=== PATIENT | male | born 1965 ===

== ENCOUNTER 2023-08-27 16:48 | Emergency (ER) | payer OTHER ==
[2023-08-27] MEDS ORDERED: Naloxone 0.4 MG/ML SDV IVPUSH PRN (17:12)
[2023-08-27 17:21] LABS: HEMATOCRIT 35.5 % (38.3-50.1); HEMOGLOBIN 11.8 g/dL (12.9-17.7); MEAN CORPUSCULAR HEMOGLOBIN 28.8 pg (27.0-33.3); MEAN CORPUSCULAR HGB CONC 33.2 g/dL (28.7-35.3); MEAN PLATELET VOLUME 7.8 fL (6.7-11.0); PLATELET COUNT,PLT 248 x10(3)uL (117-477); RED BLOOD CELL COUNT 4.08 x10(6)uL (3.90-5.90); RED CELL DISTRIBUTION WIDTH 13.6 % (12.4-15.0); WHITE BLOOD CELL COUNT,WBC 19.2 x10-3/uL (3.2-10.1)
[2023-08-27] MEDS: Ondansetron 4 MG/2 ML SDV IVPUSH ONE (17:21)
[2023-08-27] MEDS: HYDROmorphone 2 MG/ML SDV IVPUSH ONE (17:23)
[2023-08-27] MEDS: Sodium Chloride 0.9% 1,000 ML IV SCH ×2 (17:25→18:37)
[2023-08-27] MEDS: Sodium Chloride 0.9% 10 ML Syringe FLUSH PRN (17:25)
[2023-08-27 17:30] LABS: A/G RATIO 0.5; ALANINE AMINOTRANSFERASE,ALT 109 U/L (12-36); ALBUMIN 2.7 g/dL (3.5-5.2); ALKALINE PHOSPHATASE 101 IU/L (56-112); AMYLASE 27 U/L (25-115); ASPARTATE AMNIOTRANSFERASE,AST 80 IU/L (5-25); BILIRUBIN TOTAL 0.6 mg/dL (0.1-1.3); BLOOD UREA NITROGEN,BUN 75 mg/dL (7-18); BUN/CREATININE RATIO 14.4 (9-20); CALCIUM 8.9 mg/dL (8.6-10.2); CARBON DIOXIDE,CO2 25 mmol/L (21-32); CHLORIDE,CL 92 mmol/L (100-110); ESTIMATED GFR 12 mL/min (>60); GLUCOSE RANDOM 120 mg/dL (80-116); POTASSIUM,K 3.4 mmol/L (3.5-5.3); PROTEIN TOTAL,TP 7.7 g/dL (6.0-8.0); SODIUM,NA 130 mmol/L (135-145)
[2023-08-27 17:30] LABS: BILIRUBIN,URINE NEGATIVE (NEGATIVE); GLUCOSE,URINE NORMAL (NORMAL); KETONES,URINE NEGATIVE (NEGATIVE); LEUKOCYTE ESTERASE,URINE NEGATIVE (NEGATIVE); NITRITE,URINE NEGATIVE (NEGATIVE); OCCULT BLOOD,URINE MODERATE (NEGATIVE); PROTEIN,URINE 30 mg/dL (NEGATIVE); UROBILINOGEN,URINE NORMAL (NEGATIVE)
[2023-08-27 17:34] LABS: APPEARANCE,URINE CLEAR (CLEAR); BACTERIA,URINE FEW (NS); COLOR,URINE YELLOW (YELLOW); SQUAMOUS EPITHELIAL CELLS,UR FEW (NS,R,O); WBC,URINE 0-5 (0-5)
[2023-08-27 17:34] LABS: CREATININE 5.2 mg/dL (0.70-1.30)
[2023-08-27 17:39] LABS: BAND PERCENT MAN 5 % (0-6); LYMPHOCYTES PERCENT MAN 4 % (13-37); MONOCYTES PERCENT MAN 7 % (4-12); SEG NEUTROPHILS PERCENT MAN 84 % (46-82)
[2023-08-27 18:03] LABS: INR 0.92 (1.00-1.24); PROTHROMBIN TIME 9.7 sec (9.0-11.1); PTT,PARTIAL THROMBOPLSTIN TIME 28.9 SECONDS (24.4-33.2)
[2023-08-27 18:08] LABS: LACTIC ACID 0.9 mmol/L (0.4-2.0)
[2023-08-27 18:09] LABS: TROPONIN I 9.8 pg/mL (4.0-60.3)
[2023-08-27 18:46] LABS: INFLUENZA A NAA NEGATIVE (NEGATIVE); INFLUENZA B NAA NEGATIVE (NEGATIVE); RESPIRATORY SYNCYTIAL VIR NAA NEGATIVE (NEGATIVE)
[2023-08-27 18:48] LABS: CORONAVIRUS COVID-19 NAA POSITIVE (NEGATIVE)
[2023-08-27] MEDS: Piperacillin/Tazobactam 2.25 GM in Sodium Chloride 0.9% 50 ML IV STA (18:59)
[2023-08-27 20:09] VITALS: BP 101/66; PULSE 80
== END 2023-08-27 19:31 ==
LOC: FB.ED 16:48
DX: U07.1 COVID-19 (principal); J12.82 Pneumonia due to coronavirus disease 2019; N18.9 Chronic kidney disease, unspecified; D63.1 Anemia in chronic kidney disease; N17.9 Acute kidney failure, unspecified; E87.6 Hypokalemia; M51.36 Other intervertebral disc degeneration, lumbar region; E86.0 Dehydration; E87.1 Hypo-osmolality and hyponatremia
CPT/HCPCS: 0241U; 71045; 74176; 80053; 81001; 82150; 83605; 83690; 83880; 84484; 85025; 85610; 85730; 87040; 93005; 93010; 96361; 96365; 96375; 99285; 99285-25; J1170; J2405; J2543; J3490; J7030

== ENCOUNTER 2023-09-01 20:32 | Emergency (ER) | payer OTHER ==
[2023-09-01] MEDS: Acetaminophen 500 MG Tab PO ONE (21:06)
[2023-09-01] MEDS: Sodium Chloride 0.9% 1,000 ML IV SCH (21:08)
[2023-09-01 21:09] LABS: HEMATOCRIT 33.5 % (38.3-50.1); HEMOGLOBIN 11.3 g/dL (12.9-17.7); MEAN CORPUSCULAR HEMOGLOBIN 29.1 pg (27.0-33.3); MEAN CORPUSCULAR HGB CONC 33.7 g/dL (28.7-35.3); MEAN CORPUSCULAR VOLUME 86.5 fL (80.8-98.7); MEAN PLATELET VOLUME 7.8 fL (6.7-11.0); PLATELET COUNT,PLT 357 x10(3)uL (117-477); RED BLOOD CELL COUNT 3.87 x10(6)uL (3.90-5.90); RED CELL DISTRIBUTION WIDTH 13.2 % (12.4-15.0); WHITE BLOOD CELL COUNT,WBC 19.7 x10-3/uL (3.2-10.1)
[2023-09-01 21:11] LABS: BLOOD UREA NITROGEN,BUN 21 mg/dL (7-18); CALCIUM 8.2 mg/dL (8.6-10.2); CARBON DIOXIDE,CO2 28 mmol/L (21-32); CHLORIDE,CL 99 mmol/L (100-110); CREATININE 1.5 mg/dL (0.70-1.30); ESTIMATED GFR 54 mL/min (>60); GLUCOSE RANDOM 159 mg/dL (80-116); POTASSIUM,K 3.7 mmol/L (3.5-5.3); SODIUM,NA 136 mmol/L (135-145)
[2023-09-01 21:17] LABS: A/G RATIO 0.5; ALANINE AMINOTRANSFERASE,ALT 96 U/L (12-36); ALBUMIN 2.2 g/dL (3.5-5.2); ALKALINE PHOSPHATASE 89 IU/L (56-112); ASPARTATE AMNIOTRANSFERASE,AST 49 IU/L (5-25); BILIRUBIN TOTAL 0.3 mg/dL (0.1-1.3); PROTEIN TOTAL,TP 6.9 g/dL (6.0-8.0)
[2023-09-01 21:23] LABS: LYMPHOCYTES PERCENT MAN 6 % (13-37); MONOCYTES PERCENT MAN 3 % (4-12); SEG NEUTROPHILS PERCENT MAN 91 % (46-82)
[2023-09-01] MEDS: Iopamidol 755 Mg/ML 100 ML Bottle IV SCH (22:05)
[2023-09-01] MEDS: Levofloxacin/Dextrose 5%-Water 750 MG in Premix Bag 1 BAG IV ONE (22:37)
[2023-09-01] MEDS: Benzonatate 100 MG Cap PO ONE (22:48)
[2023-09-02 00:28] VITALS: BP 96/53; PULSE 81
== END 2023-09-02 00:30 ==
LOC: FB.ED 20:32
DX: U07.1 COVID-19 (principal); J12.82 Pneumonia due to coronavirus disease 2019; J91.8 Pleural effusion in other conditions classified elsewhere; R79.89 Other specified abnormal findings of blood chemistry; D72.829 Elevated white blood cell count, unspecified
CPT/HCPCS: 36415; 71046; 71275; 80053; 83605; 84484; 85025; 86140; 96361; 96365; 99285; A9270; J1956; J7030; Q9967